=== PATIENT | female | born 1975 | race Caucasian/White ===

== ENCOUNTER → 2018-09-05 10:21 | Outpatient (CLI) | payer OTHER, SELFPAY ==
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
== END ==
PROVIDERS: PCP Specialist; Visit Provider Physical Medicine & Rehabilitation
DX: M48.02 Spinal stenosis, cervical region (principal); M47.22 Other spondylosis with radiculopathy, cervical region; R51 Headache
CPT/HCPCS: 72050

== ENCOUNTER → 2018-10-30 10:56 | Outpatient (CLI) | payer OTHER, SELFPAY ==
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
== END ==
PROVIDERS: PCP Specialist; Visit Provider Physical Medicine & Rehabilitation
DX: M47.22 Other spondylosis with radiculopathy, cervical region (principal); M48.02 Spinal stenosis, cervical region; R51 Headache
CPT/HCPCS: 72141

== ENCOUNTER 2019-05-21 08:27 | Outpatient (CLI) | payer OTHER, SELFPAY ==
[2019-05-21] VITALS (7 sets, daily range): BP systolic 104–138; BP diastolic 69–82; PULSE 66–73; RESP 16–18; TEMP 36.4; O2SAT 100
--- NOTE | 2019-05-21 08:28 | DI.RAD.S_ITS ---
PROCEDURE: PAIN C/T INTERLAMINAR INJECT INDICATIONS: SPONDYLOSIS FINDINGS: Fluoroscopic spot filming was performed to verify placement of spinal needles at the C6-C7 level(s), as labeled on the films. Appropriate location(s) of the needle tip(s) was confirmed by injection of iodinated contrast. Dictated by: Rony Wayne M.D. on 05/21/2019 at 10:35 Approved by: Rony Wayne M.D. on 05/21/2019 at 10:35
[2019-05-21] MEDS: MIDAZOLAM 5 MG/5 ML VIAL IV (10:01)
[2019-05-21] MEDS: fentaNYL 100 MCG/2 ML INJ 50 MCG IV (10:02)
[2019-05-21] MEDS: DEXAMETHASONE 10 MG/ML VIAL 30 MG INJ (10:07)
[2019-05-21] MEDS: IOPAMIDOL 15 ML VIAL 3 ML INJ (10:07)
[2019-05-21] MEDS: LIDOCAINE 1% 20 ML 5 ML INJ (10:07)
--- NOTE | 2019-05-21 10:11 | PC.NURSE ---
ASSISTING PT OFF TABLE AND TRANPSPORTING TO POST PROC AREA IN STABLE CONDITION.
--- NOTE | 2019-05-21 10:18 | PM.PROC.1 ---
Procedures Date/Time Date of procedure: 05/21/19 Time of procedure: 10:18 General Procedure description: PREOP DIAGNOSIS 1. CERVICAL STENOSIS, 2. CERVICAL HNP WITH UPPER EXTREMITY RADICULAR FEATURES, POST OP DIAGNOSIS 1. CERVICAL STENOSIS, 2. CERVICAL HNP WITH UPPER EXTREMITY RADICULAR FEATURES, PROCEDURES 1. FLUORSCOPICALLY GUIDED CONTRAST CONTROLLED INTERLAMINAR EPIDURAL STEROID INJECTION - C6/7 TL JOSE CARLOS PHYSICIAN: Melvin Ricci, INDICATIONS Summer is referred for treatment of Cervical HNP with Upper Extremity Paresthesias. FINDINGS Cervical Stenosis due to disc deterioration and nerve root irritation and nerve root irritation DESCRIPTION OF PROCEDURE Fluoroscopically guided, contrast-controlled C6/7 translaminar epidural steroid injection with conscious sedation. Following review of allergy and review of potential side effects and complications, including, but not necessarily limited to, infection, allergic reaction, local tissue breakdown, temporary as well as permanent nerve injury, stroke, paralysis, and possible , the patient indicated that patient understood and agreed to proceed. An informed consent document was signed by the patient, witnessed by a nurse, and placed in the patient's chart. Additionally, other treatment options including modalities, medications, and physical therapy were reviewed with the patient. After review of previous anaesthesic history and IV conscious sedation the patient was deemed safe to proceed with todays procedure with IV conscious sedation as ASA class II designation. Safety time-out was performed to confirm patient ID, procedure to be performed and site of procedure. IV sedation was accomplished with a combination of 2mg of Versed and 50mcg of Fentanyl administered by the RN after DO order, titrated to patient comfort during the course of the procedure while the patient remained responsive to all verbal commands. In the prone position, following sterile prep and drape of the cervical region, the C6/7 translaminar space was identified fluoroscopically. The skin was anesthetized via a 25-gauge 1.5-inch needle with 1% lidocaine solution. At this point, a 25-gauge, 2.5-inch short bevel spinal needle was atraumatically introduced and advanced under fluoroscopic guidance into epidural space at the C6/7 translaminar space. Depth was confirmed on lateral view. Radiological data, including multiple fluoroscopic views of the cervical spine, reveal a spinal needle at the C6/7 translaminar space. Lateral views then show placement of the needle in the epidural space. Subsequent views show contrast material flowing superiorly and inferiorly in the epidural space. DSA fluoroscopy with live contrast injection, once again, confirmed no vascular or intrathecal uptake. At this point, using loss of resistance technique with saline and air, the epidural space was entered. Following negative aspiration, injection of approximately 1.5 cc of Isovue-200 with live fluoroscopy in the AP view confirmed epidural flow in the epidural space without vascular or intrathecal uptake observed. Subsequently, a test dose of 1 cc of 1% lidocaine solution was injected and patient was observed for two minutes without signs or symptoms of complications, including abdominal pain, shortness of breath, bilateral upper or lower extremity weakness, nausea and vomiting, prior to steroid injection. At this point, 2cc or 20mg of dexamethasone was then injected without incident. The patient tolerated the procedure well without signs or symptoms of complications prior to being transferred to the recovery area for further monitoring, The patient was then transferred to the recovery area where they were observed for an appropriate period of time after the injection. The patient reported a VAS score of 6 prior to the procedure and a post-procedure VAS of 0. Total Fluoroscopy Time: 37.0 seconds Total Conscious Time: 24min POST OP INSTRUCTIONS The patient was provided a Pain Log to continue to record their response to the target-specific procedure prior to follow-up visit with the referring provider. Additionally, specific post-injection care instructions and a contact number to our office were provided if concerns arise regarding possible complications associated with the procedure are suspected. Melvin Ricci DO Complications: none
== END 2019-05-21 10:40 ==
LOC: RAD 08:27
PROVIDERS: PCP Specialist; Visit Provider Physical Medicine & Rehabilitation
DX: M48.02 Spinal stenosis, cervical region (principal); M50.123 Cervical disc disorder at C6-C7 level with radiculopathy; R20.2 Paresthesia of skin
CPT/HCPCS: 62321; 99152; J1100; J2250; J3010

== ENCOUNTER → 2019-09-25 07:45 | Outpatient (CLI) | payer OTHER, SELFPAY ==
[2019-09-26 22:06] LABS: Zinc 78 ug/dL (56-134)
== END ==
PROVIDERS: PCP Specialist; Referring Provider Naturopath; Visit Provider Naturopath
DX: G47.00 Insomnia, unspecified (principal); K58.0 Irritable bowel syndrome with diarrhea; M19.90 Unspecified osteoarthritis, unspecified site; M25.50 Pain in unspecified joint; M54.2 Cervicalgia; R14.0 Abdominal distension (gaseous); R53.83 Other fatigue
CPT/HCPCS: 36415; 84630

== ENCOUNTER → 2022-04-07 08:23 | Outpatient (CLI) | payer OTHER, SELFPAY ==
[2022-04-07 09:54] LABS: High Sensitivity CRP - Cardiac 1.2 mg/L (1.0-3.0)
[2022-04-07 10:09] LABS: Follicle Stimulating Hormone 24.5 mIU/mL; Luteinizing Hormone 9.35 mIU/mL; Progesterone, Total 5.94 ng/mL
[2022-04-07 10:24] LABS: Estradiol, Total 34.7 pg/mL
[2022-04-07 10:40] LABS: Vitamin B12 > 1000 pg/mL (239-931)
[2022-04-10 15:36] LABS: Alanine Aminotransferase 19 IU/L (<35); Albumin 4.2 g/dL (3.5-5.0); Albumin Globulin Ratio 1.2 (1.0-2.8); Alkaline Phosphatase 56 U/L (38-126); Aspartate Aminotransferase 20 IU/L (14-36); BUN Creatinine Ratio 16.7 (6-22); Bilirubin Total 0.4 mg/dL (0.2-1.3); Blood Urea Nitrogen 14 mg/dL (7-17); Calcium 9.3 mg/dL (8.4-10.2); Carbon Dioxide 24 mmol/L (22-32); Chloride 102 mmol/L (98-107); Estimated Glomerular Filt Rate > 60 mL/min (>60); Globulin 3.5 g/dL (1.7-4.1); Glucose 102 mg/dL (70-100); HEMOLYSIS < 15 (0-50); Potassium 4.2 mmol/L (3.4-5.1); Sodium 137 mmol/L (137-145); Total Protein 7.7 g/dL (6.3-8.2)
[2022-04-10 15:53] LABS: Free T3, Triiodothyronine Free 4.23 pg/mL (2.77-5.27); Free T4, Direct Thyroxine 1.27 ng/dL (0.78-2.19)
[2022-04-10 16:12] LABS: Ferritin 21 ng/mL (6-137)
== END ==
PROVIDERS: PCP Specialist; Referring Provider Naturopath; Visit Provider Naturopath
DX: M19.90 Unspecified osteoarthritis, unspecified site (principal); R53.83 Other fatigue; G47.00 Insomnia, unspecified; M25.50 Pain in unspecified joint; K58.0 Irritable bowel syndrome with diarrhea; R14.0 Abdominal distension (gaseous); M54.2 Cervicalgia; E53.8 Deficiency of other specified B group vitamins; E72.11 Homocystinuria; E78.00 Pure hypercholesterolemia, unspecified
CPT/HCPCS: 36415; 80053; 82533; 82607; 82670; 82728; 83001; 83002; 84144; 84439; 84481; 86140

== ENCOUNTER → 2022-08-11 11:50 | Outpatient (CLI) | payer OTHER, SELFPAY ==
--- NOTE | 2022-08-11 11:54 | DI.MRI.S_ITS ---
PROCEDURE: MR HEAD/BRAIN WO CON INDICATIONS: VISION CHANGES/HEADACHE/NAUSEA/DIZZY TECHNIQUE: Non-contrast axial T1 spin echo, axial T2 fast spin echo, sagittal and axial FLAIR, coronal T2 fast spin echo, axial gradient echo, axial diffusion and ADC through the brain. COMPARISON: None. FINDINGS: Image quality: Excellent. CSF spaces: Ventricles appear symmetric in size and shape. Basal cisterns are patent. No extra-axial fluid collections. Brain: No intracranial bleeds or mass effects. There is cerebral volume loss for age. There are periventricular and deep white matter chronic small vessel ischemic changes. Brainstem appears normal. Diffusion-weighted images show no acute ischemic insults. No chronic ischemic insults. Normal intravascular flow voids are present. Skull and face: Calvarial bone marrow is normal in signal. Orbits are normal. Sinuses: Sinuses and mastoids are clear. IMPRESSION: 1. No acute process. 2. No recent infarct. Dictated by: Malgorzata Enciso M.D. on 08/13/2022 at 8:21 Approved by: Malgorzata Enciso M.D. on 08/13/2022 at 8:21
== END ==
PROVIDERS: PCP Specialist; Referring Provider Family Medicine; Visit Provider Family Medicine
DX: H53.9 Unspecified visual disturbance (principal); G44.52 New daily persistent headache (NDPH); R11.2 Nausea with vomiting, unspecified; R42 Dizziness and giddiness; R68.84 Jaw pain; R55 Syncope and collapse; R53.81 Other malaise; Z86.69 Personal history of other diseases of the nervous system and sense organs
CPT/HCPCS: 70551

== ENCOUNTER 2023-04-08 14:55 | Emergency (ER) | payer OTHER, SELFPAY ==
[2023-04-08] VITALS (12 sets, daily range): BP systolic 149–190; BP diastolic 84–105; PULSE 84–114; RESP 14–25; TEMP 36.4; O2SAT 94–100; BMI 45.7
--- NOTE | 2023-04-08 15:40 | DI.RAD.S_ITS ---
PROCEDURE: XR CHEST 1V INDICATIONS: chest pain TECHNIQUE: One view of the chest was acquired. COMPARISON: None. FINDINGS: Surgical changes and devices: None. Lungs and pleura: Lungs are clear. No pleural effusions or pneumothorax. Mediastinum: Mediastinal contours appear normal. Heart size is normal. Bones and chest wall: No suspicious bony lesions. Overlying soft tissues appear unremarkable. IMPRESSION: No acute cardiopulmonary pathology. Dictated by: Jonathan Nice M.D. on 04/08/2023 at 16:09 Approved by: Jonathan Nice M.D. on 04/08/2023 at 16:09
[2023-04-08 16:00] LABS: Add Manual Diff / Slide Review NO; Basophils Absolute Auto 100 /uL (0-100); Basophils Percent Auto 0.9 % (0-2); Eosinophils Absolute Auto 100 /uL (0-450); Eosinophils Percent Auto 1.6 % (2-4); Hematocrit 41.6 % (36-46); Hemoglobin 14.4 g/dL (12.0-16.0); Lymphocytes Absolute Auto 1600 /uL (1100-4500); Lymphocytes Percent Auto 22.9 % (25-40); Mean Corpuscular HGB Conc 34.6 % (30-36); Mean Corpuscular Hemoglobin 29.7 PG (26-34); Mean Corpuscular Volume 85.9 fL (80-100); Monocytes Absolute Auto 500 /uL (0-900); Monocytes Percent Auto 6.5 % (3-14); Neutrophils Absolute Auto 4900 /uL (1500-7000); Neutrophils Percent Auto 68.1 % (50-75); Platelet Count 257 X10^3/uL (150-400); Red Blood Cell Count 4.84 X10^6/uL (4.0-5.2); White Blood Cell Count 7.2 X10^3/uL (4.5-11.0)
[2023-04-08 16:06] LABS: Prothrombin Time 11.3 SECONDS (10.1-12.7)
[2023-04-08 16:09] LABS: PTT Partial Thromboplastin Tim 31 SECONDS (26-36)
[2023-04-08 16:14] LABS: Alanine Aminotransferase 26 IU/L (<35); Albumin 4.9 g/dL (3.5-5.0); Albumin Globulin Ratio 1.3 (1.0-2.8); Alkaline Phosphatase 78 U/L (38-126); Aspartate Aminotransferase 26 IU/L (14-36); BUN Creatinine Ratio 13.3 (6-22); Bilirubin Total 0.7 mg/dL (0.2-1.3); Blood Urea Nitrogen 11 mg/dL (7-17); Calcium 10.3 mg/dL (8.4-10.2); Carbon Dioxide 25 mmol/L (22-32); Chloride 104 mmol/L (98-107); Creatine Kinase 90 U/L (30-135); Estimated Glomerular Filt Rate > 60 mL/min (>60); Globulin 3.9 g/dL (1.7-4.1); Glucose 105 mg/dL (70-100); HEMOLYSIS 26 (0-50); Lipase 115 U/L (23-300); Potassium 3.8 mmol/L (3.4-5.1); Sodium 139 mmol/L (137-145); Total Protein 8.8 g/dL (6.3-8.2)
[2023-04-08 16:25] LABS: Troponin I < 0.012 ng/mL (0.01-0.034)
[2023-04-08 17:47] LABS: D Dimer 442 ng/ml (<500)
[2023-04-08 18:06] LABS: NT-proBNP (BNP-Adult 18+) < 20 pg/mL (<125)
--- NOTE | 2023-04-08 18:13 | ED.CHESTPAIN ---
HPI - Chest Pain General Chief Complaint: Chest Pain Stated Complaint: SOB, Chest tightness Time Seen by Provider: 04/08/23 18:13 Source: patient Mode of arrival: Ambulatory Limitations: no limitations History of Present Illness HPI narrative: This is a 47-year-old female who comes to the emergency department with history of hypertension, migraines, anxiety chronic neck and back pain who presents with complaint of feeling like it is tight in her chest and hard to take a deep breath. Patient states it has been going on for several days. She states seems to be better if she side bends or reaches her arm across her over her body. She states it feels tight in her chest like she needs to take a deep breath. Movement seems to make it better going up the stairs makes it better. Patient states it has been pretty persistent the entire time. She denies fevers or chills. She is had some mild nasal congestion. She denies any cough cold or chest congestion. She states her sternum has been little bit of discomfort she describes it as tightness not pressure or pain. Patient states no nausea no vomiting, she had some diarrhea earlier today, no black or bloody stools, no dysuria urgency or frequency. No swelling in her extremities. She states she is not had similar symptoms in the past. She notes exertion makes it better. Patient states she takes medication for hypertension, meloxicam for muscle and joint pain, anxiety medication and as needed migraine medication. Denies any prior surgeries. No known drug allergies. No tobacco, alcohol or illicit. Mom has a history of hypertension grandfather had strokes no other known cardiac, pulmonary embolic history. Patient lives on [address]. Was seen in their clinic had a chest x-ray and was referred here for further evaluation. Patient is accompanied by her sister. Related Data Home Medications Medication Instructions Recorded Confirmed cbd oil PO 05/21/18 11/27/18 Previous Rx's Medication Instructions Recorded celecoxib 200 mg capsule (Celebrex) 200 mg PO DAILY #30 caps 06/15/19 Allergies Allergy/AdvReac Type Severity Reaction Status Date / Time JADA AdvReac Mild SEVERE Uncoded 04/08/23 15:39 NAUSEA Review of Systems Review of Systems ROS Unobtainable: All systems reviewed & are unremarkable except as noted in HPI and below Patient History Medical History (Updated 04/08/23 @ 20:18 by Beatriz Padilla DO) Chronic migraine Neck pain Family History Grandfather Leukemia Stroke Grandmother Cancer Social History Smoking Status: Never smoker Smoking Status: Never smoker Substance Use Type: does not use Exam Narrative Exam Narrative: GENERAL: Alert and oriented x three, well-nourished female in mild distress. HEENT: Head normocephalic, atraumatic, EOMI, no nasal congestion, pupils reactive, face symmetric, moist mucous membranes NECK: Supple, full range of motion CARDIOVASCULAR: Regular rate and rhythm without murmurs, rubs or gallops. No JVD. No swelling bilateral lower extremities. RESPIRATORY: Breath sounds equal bilaterally, no wheezes rales or rhonchi. No tachypnea, no accessory muscle use or difficulty with speech. ABDOMEN: Soft, nontender. Normoactive bowel sounds all 4 quadrants. No guarding or rebound, rigidity, no mass : No CVA tenderness EXTREMITIES: Normal range of motion, no clubbing or edema. 2+ pulses bilateral lower extremities. Neurovascularly intact NEUROLOGICAL: Cranial nerves II through XII grossly intact. Moving all extremities SKIN: Warm, dry, no petechiae, no rashes or lesions. Initial Vital Signs Initial Vital Signs: Vital Signs Temperature 97.5 F L 04/08/23 15:36 Pulse Rate 114 H 04/08/23 15:36 Respiratory Rate 16 04/08/23 15:36 Blood Pressure 178/105 H 04/08/23 15:36 Pulse Oximetry 99 04/08/23 15:36 Oxygen Delivery Method Room Air 04/08/23 15:36 Course Orders Ordered: Discontinued Medications Aspirin (Aspirin 81 Mg Chew Tab) 324 mg PO NOW ONE Stop: 04/08/23 15:41 Last Admin: 04/08/23 19:31 Dose: Not Given Documented By: ES Vital Signs Vital signs: Vital Signs - 8 hr 04/08/23 15:36 04/08/23 17:39 04/08/23 17:41 Temperature 97.5 F L Pulse Rate 114 H 103 H Respiratory Rate 16 Blood Pressure 178/105 H 180/104 H Pulse Oximetry 99 94 Oxygen Delivery Method Room Air 04/08/23 17:41 04/08/23 17:45 04/08/23 17:45 Temperature Pulse Rate 97 H 93 H Respiratory Rate 22 18 Blood Pressure 190/84 H Pulse Oximetry 97 100 Oxygen Delivery Method 04/08/23 18:00 04/08/23 18:00 04/08/23 18:15 Temperature Pulse Rate 92 H Respiratory Rate 20 Blood Pressure 149/93 H 163/104 H Pulse Oximetry 97 Oxygen Delivery Method 04/08/23 18:15 04/08/23 18:30 04/08/23 18:30 Temperature Pulse Rate 96 H 89 Respiratory Rate 19 15 Blood Pressure 159/97 H Pulse Oximetry 100 100 Oxygen Delivery Method 04/08/23 18:45 04/08/23 18:45 04/08/23 19:00 Temperature Pulse Rate 90 86 Respiratory Rate 14 18 Blood Pressure 174/102 H Pulse Oximetry 99 97 Oxygen Delivery Method 04/08/23 19:30 Temperature Pulse Rate 84 Respiratory Rate 21 Blood Pressure Pulse Oximetry 98 Oxygen Delivery Method MDM - Chest Pain Lab Data 04/08/23 15:45 04/08/23 15:45 Labs: Lab Results 04/08/23 04/08/23 04/08/23 Range/Units 15:45 15:45 15:45 WBC 7.2 (4.5-11.0) X10^3/uL RBC 4.84 (4.0-5.2) X10^6/uL Hgb 14.4 (12.0-16.0) g/dL Hct 41.6 (36-46) % MCV 85.9 (80-100) fL MCH 29.7 (26-34) PG MCHC 34.6 (30-36) % RDW 13.0 (11.6-14.8) % Plt Count 257 (150-400) X10^3/uL Neut % (Auto) 68.1 (50-75) % Lymph % (Auto) 22.9 L (25-40) % Garvin % (Auto) 6.5 (3-14) % Eos % (Auto) 1.6 L (2-4) % Baso % (Auto) 0.9 (0-2) % Neut # (Auto) 4900 (5121-3422) /uL Lymph # (Auto) 1600 (8707-6457) /uL Garvin # (Auto) 500 (0-900) /uL Eos # (Auto) 100 (0-450) /uL Baso # (Auto) 100 (0-100) /uL PT 11.3 (10.1-12.7) SECONDS INR 1.0 (0.9-1.3) APTT 31 (26-36) SECONDS D-Dimer (<500) ng/ml Sodium 139 (137-145) mmol/L Potassium 3.8 (3.4-5.1) mmol/L Chloride 104 (98-107) mmol/L Carbon Dioxide 25 (22-32) mmol/L BUN 11 (7-17) mg/dL Creatinine 0.83 (0.52-1.04) mg/dL Estimated GFR > 60 (>60) mL/min BUN/Creatinine Ratio 13.3 (6-22) Glucose 105 H (70-100) mg/dL Calcium 10.3 H (8.4-10.2) mg/dL Magnesium 2.0 (1.6-2.3) mg/dL Total Bilirubin 0.7 (0.2-1.3) mg/dL AST 26 (14-36) IU/L ALT 26 (<35) IU/L Alkaline Phosphatase 78 (38-126) U/L Total Creatine Kinase 90 (30-135) U/L Troponin I < 0.012 (0.01-0.034) ng/mL NT-Pro-B Natriuret Pep (<125) pg/mL Total Protein 8.8 H (6.3-8.2) g/dL Albumin 4.9 (3.5-5.0) g/dL Globulin 3.9 (1.7-4.1) g/dL Albumin/Globulin Ratio 1.3 (1.0-2.8) Lipase 115 (23-300) U/L SARS-CoV-2 (PCR) (Negative) Influenza A (RT-PCR) (NEGATIVE) Influenza B (RT-PCR) (NEGATIVE) RSV (PCR) (Negative) 04/08/23 04/08/23 04/08/23 Range/Units 15:45 15:45 18:43 WBC (4.5-11.0) X10^3/uL RBC (4.0-5.2) X10^6/uL Hgb (12.0-16.0) g/dL Hct (36-46) % MCV (80-100) fL MCH (26-34) PG MCHC (30-36) % RDW (11.6-14.8) % Plt Count (150-400) X10^3/uL Neut % (Auto) (50-75) % Lymph % (Auto) (25-40) % Garvin % (Auto) (3-14) % Eos % (Auto) (2-4) % Baso % (Auto) (0-2) % Neut # (Auto) (3217-9744) /uL Lymph # (Auto) (0989-7717) /uL Garvin # (Auto) (0-900) /uL Eos # (Auto) (0-450) /uL Baso # (Auto) (0-100) /uL PT (10.1-12.7) SECONDS INR (0.9-1.3) APTT (26-36) SECONDS D-Dimer 442 (<500) ng/ml Sodium (137-145) mmol/L Potassium (3.4-5.1) mmol/L Chloride (98-107) mmol/L Carbon Dioxide (22-32) mmol/L BUN (7-17) mg/dL Creatinine (0.52-1.04) mg/dL Estimated GFR (>60) mL/min BUN/Creatinine Ratio (6-22) Glucose (70-100) mg/dL Calcium (8.4-10.2) mg/dL Magnesium (1.6-2.3) mg/dL Total Bilirubin (0.2-1.3) mg/dL AST (14-36) IU/L ALT (<35) IU/L Alkaline Phosphatase (38-126) U/L Total Creatine Kinase (30-135) U/L Troponin I (0.01-0.034) ng/mL NT-Pro-B Natriuret Pep < 20 (<125) pg/mL Total Protein (6.3-8.2) g/dL Albumin (3.5-5.0) g/dL Globulin (1.7-4.1) g/dL Albumin/Globulin Ratio (1.0-2.8) Lipase (23-300) U/L SARS-CoV-2 (PCR) Negative (Negative) Influenza A (RT-PCR) Flu a negative (NEGATIVE) Influenza B (RT-PCR) Flu b negative (NEGATIVE) RSV (PCR) Negative (Negative) 04/08/23 Range/Units 18:45 WBC (4.5-11.0) X10^3/uL RBC (4.0-5.2) X10^6/uL Hgb (12.0-16.0) g/dL Hct (36-46) % MCV (80-100) fL MCH (26-34) PG MCHC (30-36) % RDW (11.6-14.8) % Plt Count (150-400) X10^3/uL Neut % (Auto) (50-75) % Lymph % (Auto) (25-40) % Garvin % (Auto) (3-14) % Eos % (Auto) (2-4) % Baso % (Auto) (0-2) % Neut # (Auto) (1934-2378) /uL Lymph # (Auto) (7994-0236) /uL Garvin # (Auto) (0-900) /uL Eos # (Auto) (0-450) /uL Baso # (Auto) (0-100) /uL PT (10.1-12.7) SECONDS INR (0.9-1.3) APTT (26-36) SECONDS D-Dimer (<500) ng/ml Sodium (137-145) mmol/L Potassium (3.4-5.1) mmol/L Chloride (98-107) mmol/L Carbon Dioxide (22-32) mmol/L BUN (7-17) mg/dL Creatinine (0.52-1.04) mg/dL Estimated GFR (>60) mL/min BUN/Creatinine Ratio (6-22) Glucose (70-100) mg/dL Calcium (8.4-10.2) mg/dL Magnesium (1.6-2.3) mg/dL Total Bilirubin (0.2-1.3) mg/dL AST (14-36) IU/L ALT (<35) IU/L Alkaline Phosphatase (38-126) U/L Total Creatine Kinase (30-135) U/L Troponin I < 0.012 (0.01-0.034) ng/mL NT-Pro-B Natriuret Pep (<125) pg/mL Total Protein (6.3-8.2) g/dL Albumin (3.5-5.0) g/dL Globulin (1.7-4.1) g/dL Albumin/Globulin Ratio (1.0-2.8) Lipase (23-300) U/L SARS-CoV-2 (PCR) (Negative) Influenza A (RT-PCR) (NEGATIVE) Influenza B (RT-PCR) (NEGATIVE) RSV (PCR) (Negative) Imaging Data Chest x-ray: Radiologist's Impression: Close Chest X-Ray (Signed) Jonathan Nice - 04/08/23 Brain MRI (Signed) Malgorzata Enciso - 08/11/22 Cervical/Thoracic Injection (Signed) Rony Wayne - 05/21/19 Cervical Spine MRI (Signed) Tate Elise - 10/30/18 Cervical Spine X-Ray (Signed) Tate Elise - 09/05/18 [facility] [address] XRay Report Signed Patient: Jessica Zayas MR#: [id number] : 1975 Acct:[id number] Age/Sex: 47 / F Date of Service: 04/08/23 Loc: ED Accession Number: [id number] ?? Procedure: XR chest 1V Ordering Provider: Ernesto Cormier D.O. PROCEDURE:? XR CHEST 1V ? INDICATIONS:? chest pain ? TECHNIQUE:? One view of the chest was acquired.? ? COMPARISON:? None. ? FINDINGS:? ? Surgical changes and devices:? None.? ? Lungs and pleura:? Lungs are clear.? No pleural effusions or pneumothorax.? ? Mediastinum:? Mediastinal contours appear normal.? Heart size is normal.? ? Bones and chest wall:? No suspicious bony lesions.? Overlying soft tissues appear unremarkable.? ? ? IMPRESSION:? No acute cardiopulmonary pathology.? ? ? Dictated by: Jonathan Nice M.D. on 04/08/2023 at 16:09 ? ? Approved by: Jonathan Nice M.D. on 04/08/2023 at 16:09? ECG Data Attestation: I personally reviewed and interpreted this ECG as follows: Prior ECG tracings: not available for review Interpretation: Sinus rhythm rate of 90 MI 126 QRS 80 QTC of 428. No acute ST elevation T-wave inverted in 1 and aVL lateral leads V3 through V6. Patient does not have any priors for comparison. EKG 2. Sinus rhythm rate of 90 MI 126 QRS [address]TC [address] No acute ST elevation, depression in 1 aVL, T-waves inverted in lateral leads V1 through V6. No changes from prior at 7:05 p.m.. No priors for comparison. MDM Narrative Medical decision making narrative: 47-year-old female who describes shortness of breath and chest tightness which has been persistent without any resolution better with movement, stretching and going up the stairs. Patient states she is had some mild nasal congestion but no overt fevers or chills. Patient has not had any syncope, no nausea or vomiting she is had some mild diarrhea today. EKG has some potential EKG change but no priors for comparison. Patient's symptoms have been persistent CBC, coags are negative, CMP is negative negative troponin, BNP and chest x-ray with a negative D-dimer. Patient's troponin was repeated, is negative no acute or dynamic EKG changes. She has some changes but has no priors for comparison. Patient's symptoms actually improved with exertion my suspicion for acute coronary syndrome angina is unlikely with persistent shortness of breath that has never resolved for 3 days and 2- troponins without dynamic EKG changes. Discussed with patient, discussed return precautions need for follow-up. She expresses understanding. Discharge Plan Departure Patient Disposition: Home Clinical Impression: Shortness of breath Instructions: DI for Shortness of Breath Activity Restrictions/Additional Instructions: Your workup today is overall reassuring. Please follow-up with your physician for recheck. You may continue your home medications as prescribed. Please return for new or worsening chest pain, shortness of breath, lightheadedness or passing out, coughing up blood, fevers, new swelling of your extremities or other new or concerning changes. Prescriptions: No Action cbd oil PO celecoxib [Celebrex] 200 mg capsule 200 mg PO DAILY Qty: 30 2RF Referrals: Hodan Acevedo MD [Primary Care Provider] - Stand Alone Forms: Patient Portal/API
[2023-04-08 19:57] LABS: COVID-19 CEPHEID 4-PLEX PCR Negative (Negative); Influenza A - CEPHEID Flu A NEGATIVE (NEGATIVE); Influenza B - CEPHEID Flu B NEGATIVE (NEGATIVE); Respiratory Syncytial Virus Negative (Negative)
[2023-04-08 19:59] LABS: Troponin I < 0.012 ng/mL (0.01-0.034)
== END 2023-04-08 20:24 | disposition home or self-care (01) ==
PROVIDERS: Emergency Medicine; Emergency Provider Emergency Medicine; PCP Specialist
DX: R06.02 Shortness of breath (principal); R07.9 Chest pain, unspecified; Z20.822 Contact with and (suspected) exposure to COVID-19
CPT/HCPCS: 0241U; 36415; 71045; 80053; 82550; 83690; 83735; 83880; 84484; 85025; 85379; 85610; 85730; 93005; 99284

== ENCOUNTER → 2023-06-26 10:22 | Outpatient (CLI) | payer OTHER, SELFPAY ==
--- NOTE | 2023-06-26 | DI.US.S_ITS ---
PROCEDURE: US ABDOMEN LIMITED INDICATIONS: FIRM TISSUE ON LEFT SCAPULAR EDGE NEAR MIDLINE TECHNIQUE: Real-time focused scanning was performed of the area of clinical concern of the back. Color Doppler was also utilized. COMPARISON: None. FINDINGS: Scanning is performed at the area of clinical concern. No lesion is seen to correspond to the given history of a 2 cm lesion within this area. Within this region, there is incidental note made of a slightly hyperechoic nonvascular focus within the subcutaneous fat that measures up to 7 mm. This may be related to a lipoma. IMPRESSION: No concerning mass seen corresponding to the palpable abnormality. Dictated by: Tate Elise M.D. on 06/26/2023 at 11:06 Approved by: Tate Elise M.D. on 06/26/2023 at 11:08
== END ==
PROVIDERS: PCP Family Medicine; Referring Provider Family Medicine; Visit Provider Family Medicine
DX: D17.1 Benign lipomatous neoplasm of skin and subcutaneous tissue of trunk (principal)
CPT/HCPCS: 76705

== ENCOUNTER → 2024-02-03 13:18 | Outpatient (CLI) | payer OTHER, SELFPAY ==
[2024-02-03 13:55] LABS: Alanine Aminotransferase 19 IU/L (<35); Albumin 4.3 g/dL (3.5-5.0); Albumin Globulin Ratio 1.6 (1.0-2.8); Alkaline Phosphatase 57 U/L (38-126); Aspartate Aminotransferase 21 IU/L (14-36); BUN Creatinine Ratio 16.2 (6-22); Bilirubin Total 0.4 mg/dL (0.2-1.3); Blood Urea Nitrogen 16 mg/dL (7-17); Carbon Dioxide 26 mmol/L (22-32); Chloride 104 mmol/L (98-107); Estimated Glomerular Filt Rate > 60 mL/min (>60); Globulin 2.7 g/dL (1.7-4.1); Glucose 112 mg/dL (70-100); HEMOLYSIS < 15 (0-50); Potassium 4.1 mmol/L (3.4-5.1); Sodium 138 mmol/L (137-145)
== END ==
PROVIDERS: PCP Family Medicine; Referring Provider Psychiatry & Neurology Neurology; Visit Provider Psychiatry & Neurology Neurology
DX: Z51.81 Encounter for therapeutic drug level monitoring (principal)
CPT/HCPCS: 36415; 80053